=== PATIENT | female | born 1950 | race Caucasian/White ===

== ENCOUNTER 2016-11-14 10:40 | Inpatient (IN) | payer OTHER ==
[~2016-11-14 10:40] MED LIST: AMBIEN5 M1 PO
[2016-11-14] MEDS ORDERED: ASPIRIN81 M1 PO (11:00)
[2016-11-14] MEDS ORDERED: MOBIC15 M2 PO (11:01)
[2016-11-14] MEDS ORDERED: ULTRAM50 M1 PO (11:01)
[2016-11-14 11:53] LABS: BASO % 0.6 % (0-2); BASO ABSOLUTE COUNT 0.1 tho/cmm (0.0-0.2); EOS % 2.6 % (0-7); EOSINOPHIL ABSOLUTE COUNT 0.3 tho/cmm (0.0-0.7); HCT-HEMATOCRIT 38.6 % (34.0-49.0); HGB-HEMOGLOBIN 13.2 gm/dl (12.0-15.5); IMMATURE GRANULOCYTES ABSOLUTE 0.02 tho/cmm (0-0.03); IMMATURE GRANULOCYTES PERCENT 0.2 % (0-0.3); LYMPH % 12.5 % (20-45); LYMPH ABSOLUTE COUNT 1.3 tho/cmm (0.8-4.5); MCH (MEAN CORPUSCULAR HGB) 29.8 pg (28.0-32.0); MCHC MEAN CORPUSCULAR HGB CONC 34.2 % (32.0-36.0); MCV (MEAN CELL VOLUME) 87.1 fl (82.0-96.0); MEAN PLATELET VOLUME 9.7 cmc (9.4-12.4); MONO % 6.7 % (0-12); MONOCYTE ABSOLUTE COUNT 0.7 tho/cmm (0.0-1.2); NEUTROPHIL ABSOLUTE COUNT 7.8 tho/cmm (1.6-8.0); NEUTROPHIL-AUTOMATED 7.8 tho/cmm (1.6-8.0); NEUTROPHILS % 77.4 % (40-80); PLATELET COUNT 214 tho/cmm (150-450); RED BLOOD COUNT 4.43 mil/cmm (4.00-5.20); RED CELL DISTRIBUTION WIDTH 13.5 % (12.4-16.4); WHITE BLOOD COUNT 10.1 tho/cmm (4.0-10.0)
[2016-11-14 11:58] LABS: PROTHROMBIN TIME 11.4 SECONDS (9.0-13.6)
[2016-11-14 12:07] LABS: ANION GAP 16 mmol/L (0-20); BLOOD UREA NITROGEN 21 mg/dl (6-24); CALCIUM 9.1 mg/dl (8.5-10.5); CARBON DIOXIDE-VENOUS 25 mmol/L (22-32); CHLORIDE 107 mmol/l (96-110); CREATININE 0.88 mg/dl (0.50-1.10); GLUCOSE 100 mg/dL (70-110); POTASSIUM 3.6 mmol/L (3.7-5.1); SODIUM 144 mmol/L (135-145); eGFR VALUE FOR BLACK 80 mL/Min
[2016-11-14 12:46] LABS: ALB/GLOB RATIO 1.1 (0.8-2.0); ALBUMIN 3.8 g/dl (3.5-5.0); BILIRUBIN,DIRECT 0.1 mg/dl (0.0-0.3); BILIRUBIN,INDIRECT 0.5 mg/dL (0.0-1.0); BILIRUBIN,TOTAL 0.6 mg/dl (0-1.5)
[2016-11-15] MEDS ORDERED: XARELTO15 M1 PO (10:01)
[2016-11-15] MEDS ORDERED: XARELTO20 M1 PO (10:02)
== END 2016-11-15 12:00 | DRG 299 ==
LOC: EDMED 10:40 → EMR2 14:13 → 5EB 16:07
PROVIDERS: Emergency Medicine; ADMIT Internal Medicine
DX: I82.422 Acute embolism and thrombosis of left iliac vein (principal); I26.99 Other pulmonary embolism without acute cor pulmonale; M19.90 Unspecified osteoarthritis, unspecified site; Z96.649 Presence of unspecified artificial hip joint; Z79.82 Long term (current) use of aspirin
CPT/HCPCS: J1650; J7030; Q9967